=== PATIENT | male | born 1965 | race Caucasian/White ===

== ENCOUNTER 2016-03-23 15:58 | Emergency (ER) | payer OTHER ==
[2016-03-23] MEDS ORDERED: Lidocaine 1% 20 ML MDV ONE (16:33)
[2016-03-23] MEDS ORDERED: Adacel (T-DAP) 0.5 ML VIAL ONE (16:56)
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
[2016-03-23] MEDS ORDERED: Ibuprofen 800 MG TAB ONE (18:24)
[2016-03-23] MEDS ORDERED: HYDROcodone/Acetaminophen 5/325 mg Tablet ONE (18:24)
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
== END 2016-03-23 18:35 | disposition home or self-care (01) ==
LOC: MADERS 15:58
DX: S00.531A Contusion of lip, initial encounter (principal); I10 Essential (primary) hypertension; F32.9 Major depressive disorder, single episode, unspecified; F17.210 Nicotine dependence, cigarettes, uncomplicated; Y04.8XXA Assault by other bodily force, initial encounter
CPT/HCPCS: 12011; 70450; 70486; 90471; 90715; J2001